=== PATIENT | male | born 1955 | race Hispanic/Latino ===

== ENCOUNTER 2024-06-07 08:48 | Inpatient (IN) | payer MEDICARE ==
[2024-06-07] VITALS (7 sets, daily range): BP systolic 174–192; BP diastolic 100–108; PULSE 93–101; RESP 16–18; TEMP 97.9–98.6; O2SAT 98–100
[~2024-06-07] VITALS: Ht 165.1 cm; Wt 54.4 kg
[2024-06-07] MEDS ORDERED: JARDIANCE25 MG PO (09:40)
[2024-06-07] MEDS ORDERED: METFORMIN HCL500 MG PO (09:40)
[2024-06-07] MEDS ORDERED: ATORVASTATIN CA20 MG PO (09:40)
[2024-06-07] MEDS ORDERED: FAMOTIDINE20 MG PO (09:40)
[2024-06-07] MEDS ORDERED: TRAZODONE HCL50 MG PO (09:40)
[2024-06-07] MEDS ORDERED: LANTUS 3ML100 UNITS/ SQ (09:40)
[2024-06-07 09:50] LABS: BASOPHILS % 0.6 % (0.0-1.0); EOSINOPHILS # (AUTO) 0.1 (0.0-0.4); EOSINOPHILS % 2.1 % (0.0-6.0); HEMATOCRIT 31.7 % (38.2-49.6); HEMOGLOBIN 10.8 g/dL (14.0-18.0); LYMPHOCYTES # (AUTO) 0.7 (1.0-3.2); LYMPHOCYTES % 15.2 % (18.0-39.1); MEAN CORPUSCULAR HEMOGLOBIN 29.9 pg (28-32); MEAN CORPUSCULAR HGB CONC 34.1 g/dL (31-35); MEAN CORPUSCULAR VOLUME 87.8 fL (81-99); MONOCYTES # (AUTO) 0.8 (0.2-0.8); MONOCYTES % 16.1 % (4.4-11.3); NEUTROPHILS # (AUTO) 3.1 (2.1-6.9); NEUTROPHILS % 65.8 % (38.7-80.0); PLATELET COUNT 193 x10e3/uL (140-360); RED BLOOD COUNT 3.61 x10e6/uL (4.3-5.7); RED CELL DISTRIBUTION WIDTH 13.4 % (11.7-14.4); WHITE BLOOD COUNT 4.66 x10e3/uL (4.8-10.8)
[2024-06-07 10:13] LABS: ALBUMIN 3.6 g/dL (3.5-5.0); ALBUMIN/GLOBULIN RATIO 1.2 (0.8-2.0); ANION GAP 19.1 mmol/L (8-16); BILIRUBIN,TOTAL 0.6 mg/dL (0.2-1.2); CALCIUM 8.1 mg/dL (8.4-10.2); CREATININE, SERUM 8.43 mg/dL (0.72-1.25); POTASSIUM 5.1 mmol/L (3.5-5.1); TOTAL PROTEIN 6.6 g/dL (6.5-8.1)
[2024-06-07 10:15] LABS: CLARITY,URINE CLEAR (CLEAR); COLOR,URINE YELLOW (YELLOW)
[2024-06-07] MEDS ORDERED: SODIUM CHLORIDE 0.9% 1000ML 1,000 ML IV SCH (10:15)
[2024-06-07 10:16] LABS: BILIRUBIN,URINE NEGATIVE (NEGATIVE); GLUCOSE, URINE 1+ (NEGATIVE); KETONES,URINE NEGATIVE (NEGATIVE); LEUKOCYTE ESTERASE ,URINE NEGATIVE (NEGATIVE); NITRITE,URINE NEGATIVE (NEGATIVE); PH,URINE 7.5 (5 - 7); PROTEIN,URINE DIPSTICK 2+ (NEGATIVE); URINE UROBILINOGEN 0.2 mg/dL (0.2 - 1)
[2024-06-07 10:19] LABS: RBC,URINE 0-5 /HPF (0-5); WBC,URINE (MAN) 0-5 /HPF (0-5)
[2024-06-07] MEDS ORDERED: LOSARTAN POTASS25 MG PO (11:15)
[2024-06-07] MEDS ORDERED: DEXTROSE 50% SYRINGE 50 ML IV PRN (12:00)
[2024-06-07] MEDS ORDERED: ACETAMINOPHEN 325 MG TAB PO PRN (12:00)
[2024-06-07] MEDS ORDERED: DOCUSATE SODIUM 100 MG CAP PO PRN (12:00)
[2024-06-07] MEDS: METOPROLOL TARTRATE INJ 1 MG/ML VIAL IV PRN (13:29)
[2024-06-07] MEDS: SODIUM CHLORIDE 0.9% 1000ML 1,000 ML IV SCH (13:36)
[2024-06-07 13:52] LABS: CHOL/HDL RATIO 4.6 (3.9-4.7)
[2024-06-07] MEDS: LORATADINE 10 MG TAB PO SCH (16:13)
[2024-06-07] MEDS: INSULIN REGULAR, HUMAN 100 UNIT/1 ML SQ SCH (16:30)
[2024-06-07] MEDS: TRAZODONE HCL 50 MG TAB PO SCH (21:25)
[2024-06-07] MEDS: ATORVASTATIN 40 MG TAB PO SCH (21:25)
[2024-06-07] MEDS: HEPARIN SOD (PORCINE) 5,000 UNIT/ML VIAL SC SCH (21:30)
[2024-06-08] VITALS (11 sets, daily range): BP systolic 139–160; BP diastolic 83–98; PULSE 84–101; RESP 18–20; TEMP 97.4–98.9; O2SAT 96–100
[2024-06-08 06:14] LABS: BASOPHILS % 0.5 % (0.0-1.0); EOSINOPHILS % 0.4 % (0.0-6.0); HEMATOCRIT 31.3 % (38.2-49.6); HEMOGLOBIN 10.5 g/dL (14.0-18.0); LYMPHOCYTES # (AUTO) 0.6 (1.0-3.2); LYMPHOCYTES % 10.3 % (18.0-39.1); MEAN CORPUSCULAR HEMOGLOBIN 29.5 pg (28-32); MEAN CORPUSCULAR HGB CONC 33.5 g/dL (31-35); MEAN CORPUSCULAR VOLUME 87.9 fL (81-99); MONOCYTES # (AUTO) 0.4 (0.2-0.8); MONOCYTES % 7.7 % (4.4-11.3); NEUTROPHILS # (AUTO) 4.4 (2.1-6.9); NEUTROPHILS % 80.7 % (38.7-80.0); PLATELET COUNT 197 x10e3/uL (140-360); RED BLOOD COUNT 3.56 x10e6/uL (4.3-5.7); RED CELL DISTRIBUTION WIDTH 13.3 % (11.7-14.4); WHITE BLOOD COUNT 5.46 x10e3/uL (4.8-10.8)
[2024-06-08 06:35] LABS: ANION GAP 18.1 mmol/L (8-16); CALCIUM 7.6 mg/dL (8.4-10.2); POTASSIUM 5.1 mmol/L (3.5-5.1)
[2024-06-08] MEDS ORDERED: SODIUM BICARBONATE 8.4% SYRING 100 ML in DEXTROSE 5% 1,000 ML IV SCH (08:30)
[2024-06-08] MEDS: METOPROLOL TARTRATE 25 MG TAB PO SCH (08:39)
[2024-06-08] MEDS ORDERED: SODIUM BICARBONATE 8.4% VIAL 100 ML in DEXTROSE 5% 1,000 ML IV SCH (09:45)
[2024-06-08] MEDS: SODIUM BICARBONATE 8.4% VIAL 100 ML in DEXTROSE 5% 1,000 ML IV SCH (11:27)
[2024-06-08] MEDS: MELATONIN 3 MG TAB PO PRN (21:38)
[2024-06-09] VITALS (9 sets, daily range): BP systolic 141–170; BP diastolic 80–93; PULSE 79–92; RESP 16–20; TEMP 98–98.8; O2SAT 95–98
[2024-06-09 07:01] LABS: BASOPHILS % 0.4 % (0.0-1.0); EOSINOPHILS # (AUTO) 0.2 (0.0-0.4); EOSINOPHILS % 3.5 % (0.0-6.0); HEMATOCRIT 27.1 % (38.2-49.6); HEMOGLOBIN 9.2 g/dL (14.0-18.0); LYMPHOCYTES # (AUTO) 1.3 (1.0-3.2); LYMPHOCYTES % 26.2 % (18.0-39.1); MEAN CORPUSCULAR HEMOGLOBIN 29.7 pg (28-32); MEAN CORPUSCULAR HGB CONC 33.9 g/dL (31-35); MEAN CORPUSCULAR VOLUME 87.4 fL (81-99); MONOCYTES # (AUTO) 0.6 (0.2-0.8); MONOCYTES % 13.1 % (4.4-11.3); NEUTROPHILS # (AUTO) 2.8 (2.1-6.9); NEUTROPHILS % 56.6 % (38.7-80.0); PLATELET COUNT 174 x10e3/uL (140-360); RED CELL DISTRIBUTION WIDTH 13.3 % (11.7-14.4); WHITE BLOOD COUNT 4.88 x10e3/uL (4.8-10.8)
[2024-06-09 07:28] LABS: ANION GAP 17.1 mmol/L (8-16); CALCIUM 7.3 mg/dL (8.4-10.2); CREATININE, SERUM 8.01 mg/dL (0.72-1.25); POTASSIUM 4.1 mmol/L (3.5-5.1)
[2024-06-10] VITALS (11 sets, daily range): BP systolic 136–179; BP diastolic 78–97; PULSE 58–83; RESP 18–20; TEMP 97–98.6; O2SAT 92–100
[2024-06-10 06:47] LABS: BASOPHILS % 0.4 % (0.0-1.0); EOSINOPHILS # (AUTO) 0.2 (0.0-0.4); EOSINOPHILS % 3.8 % (0.0-6.0); HEMOGLOBIN 8.9 g/dL (14.0-18.0); LYMPHOCYTES % 18.6 % (18.0-39.1); MEAN CORPUSCULAR HEMOGLOBIN 29.7 pg (28-32); MEAN CORPUSCULAR HGB CONC 34.2 g/dL (31-35); MEAN CORPUSCULAR VOLUME 86.7 fL (81-99); MONOCYTES # (AUTO) 0.6 (0.2-0.8); NEUTROPHILS # (AUTO) 3.5 (2.1-6.9); NEUTROPHILS % 64.8 % (38.7-80.0); PLATELET COUNT 173 x10e3/uL (140-360); RED CELL DISTRIBUTION WIDTH 13.2 % (11.7-14.4); WHITE BLOOD COUNT 5.33 x10e3/uL (4.8-10.8)
[2024-06-10 07:28] LABS: ANION GAP 16.7 mmol/L (8-16); CALCIUM 7.1 mg/dL (8.4-10.2); CREATININE, SERUM 7.68 mg/dL (0.72-1.25); POTASSIUM 3.7 mmol/L (3.5-5.1)
[2024-06-10] MEDS: SODIUM CHLORIDE 0.9% 1000ML 1,000 ML IV SCH (11:00)
[2024-06-10] MEDS: METHYLPREDNISOLONE SOD SUCC 40 MG/ML VIAL 1ML IV SCH (21:24)
[2024-06-11] VITALS (22 sets, daily range): BP systolic 144–205; BP diastolic 88–146; PULSE 25–126; RESP 11–31; TEMP 97.4–98.2; O2SAT 62–100
[2024-06-11 06:56] LABS: CALCIUM 7.2 mg/dL (8.4-10.2); CREATININE, SERUM 7.29 mg/dL (0.72-1.25)
[2024-06-11] MEDS: METOPROLOL TARTRATE 50 MG TAB PO SCH (08:49)
[2024-06-11] MEDS: METHYLPREDNISOLONE SOD SUCC 40 MG/ML VIAL 1ML IV SCH (08:50)
[2024-06-11 21:28] LABS: BASOPHILS % 0.1 % (0.0-1.0); HEMATOCRIT 30.6 % (38.2-49.6); HEMOGLOBIN 10.4 g/dL (14.0-18.0); LYMPHOCYTES # (AUTO) 0.9 (1.0-3.2); LYMPHOCYTES % 8.3 % (18.0-39.1); MEAN CORPUSCULAR VOLUME 88.2 fL (81-99); MONOCYTES # (AUTO) 0.5 (0.2-0.8); MONOCYTES % 4.5 % (4.4-11.3); NEUTROPHILS # (AUTO) 9.3 (2.1-6.9); NEUTROPHILS % 86.4 % (38.7-80.0); PLATELET COUNT 254 x10e3/uL (140-360); RED BLOOD COUNT 3.47 x10e6/uL (4.3-5.7); RED CELL DISTRIBUTION WIDTH 13.2 % (11.7-14.4); WHITE BLOOD COUNT 10.73 x10e3/uL (4.8-10.8)
[2024-06-11] MEDS: LORAZEPAM INJ 2 MG/ML VIAL ONE (21:38)
[2024-06-11] MEDS: ONDANSETRON HCL INJ 2MG/ML 2ML 2 MG/ML VIAL ONE (21:39)
[2024-06-11] MEDS: GLUCAGON FOR INJ 1 MG VIAL ONE (21:39)
[2024-06-11] MEDS: FUROSEMIDE INJ 10 MG/ML 2 ML VIAL ONE ×2 (21:40→21:41)
[2024-06-11 21:52] LABS: ALBUMIN 3.3 g/dL (3.5-5.0); ALBUMIN/GLOBULIN RATIO 1.1 (0.8-2.0); ANION GAP 16.9 mmol/L (8-16); BILIRUBIN,TOTAL 0.7 mg/dL (0.2-1.2); CREATININE, SERUM 6.76 mg/dL (0.72-1.25); POTASSIUM 3.9 mmol/L (3.5-5.1); TOTAL PROTEIN 6.3 g/dL (6.5-8.1)
[2024-06-11 22:04] LABS: CREATINE KINASE 112 IU/L (30-200)
[2024-06-11 22:10] LABS: TROPONIN I < 0.05 ng/mL (0.0-0.40)
[2024-06-11] MEDS: ALBUTEROL/IPRATROPIUM 3 ML NEB NEB PRN (22:12)
[2024-06-11] MEDS: LORAZEPAM INJ 2 MG/ML VIAL IV ONE (22:41)
[2024-06-11] MEDS: GLUCAGON FOR INJ 1 MG VIAL IV ONE (22:42)
[2024-06-11] MEDS: FUROSEMIDE INJ 10 MG/ML 4 ML VIAL IV ONE (22:42)
[2024-06-11] MEDS: ONDANSETRON HCL INJ 2MG/ML 2ML 2 MG/ML VIAL IV STA (22:45)
[2024-06-11] MEDS ORDERED: DEXMEDETOMIDINE 400MCG/NS100ML 100 ML IV PRN (23:00)
[2024-06-11] MEDS: MUPIROCIN 2% OINT 22 GM TUBE TOP SCH (23:00)
[2024-06-12] VITALS (39 sets, daily range): BP systolic 93–168; BP diastolic 65–98; PULSE 72–94; RESP 16–20; TEMP 97–97.6; O2SAT 97–100
[2024-06-12] MEDS: HEPARIN 500 UNITS/5ML MDV INJ PRN (01:06)
[2024-06-12] MEDS: FUROSEMIDE INJ 100 MG in SODIUM CHLORIDE 0.9% 90 ML IV STA (01:06)
[2024-06-12] MEDS: PROPOFOL IV EMULSION 10MG/ML 100 ML IV PRN ×2 (01:18→16:08)
[2024-06-12 02:21] LABS: ABG HCO3 22 mmol/L (22-26); ABG PCO2 42 mmHg (35-45); ABG PH 7.33 (7.35-7.45); ABG PO2 276 mmHg (80-105); ABG TCO2 23
[2024-06-12 06:39] LABS: ANION GAP 17.8 mmol/L (8-16); CREATININE, SERUM 6.82 mg/dL (0.72-1.25); POTASSIUM 3.8 mmol/L (3.5-5.1)
[2024-06-12 06:44] LABS: CALCIUM 6.4 mg/dL (8.4-10.2)
[2024-06-12 07:14] LABS: COMPLEMENT C3 105 mg/dL (82-167)
[2024-06-12 07:23] LABS: COMPLEMENT C4 15 mg/dL (12-38)
[2024-06-12 07:41] LABS: ABG HCO3 22 mmol/L (22-26); ABG PCO2 36 mmHg (35-45); ABG PH 7.39 (7.35-7.45); ABG PO2 141 mmHg (80-105); ABG TCO2 23
[2024-06-12] MEDS: FUROSEMIDE INJ 10 MG/ML 4 ML VIAL IV ONE (08:51)
[2024-06-12] MEDS: CALCIUM GLUC 1 G/50 ML NACL 50 ML IV ONE ×2 (08:51→10:28)
[2024-06-12] MEDS: MIDAZOLAM HCL 2 MG/2 ML VIAL IV ONE (08:53)
[2024-06-12] MEDS: HEPARIN SOD (PORCINE) 5,000 UNIT/ML VIAL SC SCH (10:35)
[2024-06-12] MEDS ORDERED: WATER STERILE 10 ML VIAL ONE (11:15)
[2024-06-12] MEDS ORDERED: MIDAZOLAM HCL 2 MG/2 ML VIAL ONE (11:15)
[2024-06-12] MEDS ORDERED: ETOMIDATE 2 MG/ML 10 ML INJ IV ONE (11:15)
[2024-06-12] MEDS ORDERED: VECURONIUM BROMIDE FOR INJ 20 MG VIAL ONE (11:15)
[2024-06-12] MEDS: FUROSEMIDE INJ 100 MG in SODIUM CHLORIDE 0.9% 90 ML IV SCH (14:28)
[2024-06-12] MEDS: LORAZEPAM INJ 2 MG/ML VIAL IV PRN (15:08)
[2024-06-13] VITALS (24 sets, daily range): BP systolic 131–174; BP diastolic 76–101; PULSE 74–95; RESP 15–20; TEMP 97–98; O2SAT 99–100
[2024-06-13 07:24] LABS: HEMATOCRIT 25.2 % (38.2-49.6); LYMPHOCYTES # (AUTO) 0.3 (1.0-3.2); LYMPHOCYTES % 3.9 % (18.0-39.1); MEAN CORPUSCULAR HEMOGLOBIN 29.9 pg (28-32); MEAN CORPUSCULAR HGB CONC 35.7 g/dL (31-35); MEAN CORPUSCULAR VOLUME 83.7 fL (81-99); MONOCYTES # (AUTO) 0.5 (0.2-0.8); MONOCYTES % 5.4 % (4.4-11.3); NEUTROPHILS # (AUTO) 7.7 (2.1-6.9); NEUTROPHILS % 90.3 % (38.7-80.0); PLATELET COUNT 184 x10e3/uL (140-360); RED BLOOD COUNT 3.01 x10e6/uL (4.3-5.7); RED CELL DISTRIBUTION WIDTH 13.2 % (11.7-14.4)
[2024-06-13 07:53] LABS: ALBUMIN 2.8 g/dL (3.5-5.0); ALBUMIN/GLOBULIN RATIO 0.9 (0.8-2.0); ANION GAP 24.7 mmol/L (8-16); BILIRUBIN,TOTAL 0.5 mg/dL (0.2-1.2); CREATININE, SERUM 7.37 mg/dL (0.72-1.25); POTASSIUM 3.7 mmol/L (3.5-5.1); TOTAL PROTEIN 5.9 g/dL (6.5-8.1)
[2024-06-13] MEDS: LABETALOL HCL 5 MG/ML 20ML VIAL IV PRN (08:29)
[2024-06-13] MEDS ORDERED: HEPARIN SOD (PORCINE) 1000 UNIT/ML SDV IV PRN (14:30)
[2024-06-13] MEDS ORDERED: MANNITOL 25% 12.5GM/50 ML VIAL IV PRN (14:30)
[2024-06-13] MEDS ORDERED: SODIUM CHLORIDE 0.9% 1000ML 2,000 ML IV PRN (14:30)
[2024-06-13] MEDS: SODIUM CHLORIDE 0.9% 1000ML 0 ML ONE (19:52)
[2024-06-14] VITALS (85 sets, daily range): BP systolic 110–204; BP diastolic 62–106; PULSE 74–101; RESP 9–20; TEMP 97.1–98.8; O2SAT 97–100
[2024-06-14 06:04] LABS: ALBUMIN 2.8 g/dL (3.5-5.0); ALBUMIN/GLOBULIN RATIO 0.8 (0.8-2.0); ANION GAP 21.7 mmol/L (8-16); BILIRUBIN,TOTAL 0.4 mg/dL (0.2-1.2); CALCIUM 7.5 mg/dL (8.4-10.2); CREATININE, SERUM 5.62 mg/dL (0.72-1.25); POTASSIUM 3.7 mmol/L (3.5-5.1); TOTAL PROTEIN 6.1 g/dL (6.5-8.1)
[2024-06-14 06:22] LABS: BASOPHILS % 0.1 % (0.0-1.0); HEMOGLOBIN 9.4 g/dL (14.0-18.0); LYMPHOCYTES # (AUTO) 0.3 (1.0-3.2); LYMPHOCYTES % 3.8 % (18.0-39.1); MEAN CORPUSCULAR HEMOGLOBIN 29.7 pg (28-32); MEAN CORPUSCULAR HGB CONC 34.8 g/dL (31-35); MEAN CORPUSCULAR VOLUME 85.2 fL (81-99); MONOCYTES # (AUTO) 0.4 (0.2-0.8); MONOCYTES % 5.3 % (4.4-11.3); NEUTROPHILS # (AUTO) 6.2 (2.1-6.9); NEUTROPHILS % 90.4 % (38.7-80.0); PLATELET COUNT 213 x10e3/uL (140-360); RED BLOOD COUNT 3.17 x10e6/uL (4.3-5.7); RED CELL DISTRIBUTION WIDTH 13.2 % (11.7-14.4); WHITE BLOOD COUNT 6.85 x10e3/uL (4.8-10.8)
[2024-06-14 08:35] LABS: ABG HCO3 26 mmol/L (22-26); ABG PCO2 36 mmHg (35-45); ABG PH 7.46 (7.35-7.45); ABG PO2 182 mmHg (80-105); ABG TCO2 27
[2024-06-14] MEDS: METOPROLOL TARTRATE 50 MG TAB PO ONE (09:54)
[2024-06-14] MEDS: SODIUM CHLORIDE 0.9% 1000ML 1,000 ML ONE (10:09)
[2024-06-14] MEDS: HEPARIN SOD (PORCINE) 1000 UNIT/ML SDV ONE (10:09)
[2024-06-14] MEDS: NIFEDIPINE CR 30 MG TAB PO ONE (11:40)
[2024-06-14] MEDS: METOPROLOL TARTRATE 50 MG TAB PO SCH ×2 (11:41→20:44)
[2024-06-15] VITALS (45 sets, daily range): BP systolic 145–188; BP diastolic 79–100; PULSE 70–134; RESP 10–20; TEMP 97.9–98.4; O2SAT 10–100
[2024-06-15 09:01] LABS: WHITE BLOOD COUNT 7.69 x10e3/uL (4.8-10.8)
[2024-06-15 09:02] LABS: BASOPHILS % 0.1 % (0.0-1.0); HEMATOCRIT 28.3 % (38.2-49.6); HEMOGLOBIN 9.5 g/dL (14.0-18.0); LYMPHOCYTES % 4.3 % (18.0-39.1); MEAN CORPUSCULAR HEMOGLOBIN 29.1 pg (28-32); MEAN CORPUSCULAR HGB CONC 33.6 g/dL (31-35); MEAN CORPUSCULAR VOLUME 86.8 fL (81-99); NEUTROPHILS # (AUTO) 6.4 (2.1-6.9); NEUTROPHILS % 83.2 % (38.7-80.0); PLATELET COUNT 227 x10e3/uL (140-360); RED BLOOD COUNT 3.26 x10e6/uL (4.3-5.7); RED CELL DISTRIBUTION WIDTH 13.7 % (11.7-14.4)
[2024-06-15 09:03] LABS: LYMPHOCYTES # (AUTO) 0.3 (1.0-3.2); MONOCYTES # (AUTO) 0.9 (0.2-0.8)
[2024-06-15 09:18] LABS: ANION GAP 19.6 mmol/L (8-16); BILIRUBIN,TOTAL 0.6 mg/dL (0.2-1.2); CREATININE, SERUM 4.69 mg/dL (0.72-1.25); POTASSIUM 3.6 mmol/L (3.5-5.1)
[2024-06-15 09:19] LABS: ALBUMIN 2.9 g/dL (3.5-5.0); ALBUMIN/GLOBULIN RATIO 0.9 (0.8-2.0); TOTAL PROTEIN 6.1 g/dL (6.5-8.1)
[2024-06-15] MEDS: LOSARTAN POTASSIUM 100 MG TAB PO SCH (10:17)
[2024-06-15] MEDS: NIFEDIPINE CR 30 MG TAB PO SCH (15:30)
[2024-06-16] VITALS (28 sets, daily range): BP systolic 134–180; BP diastolic 79–109; PULSE 65–95; RESP 10–21; TEMP 98–98.4; O2SAT 95–100
[2024-06-16 07:01] LABS: ANION GAP 17.9 mmol/L (8-16); CALCIUM 7.9 mg/dL (8.4-10.2); CREATININE, SERUM 5.73 mg/dL (0.72-1.25); POTASSIUM 3.9 mmol/L (3.5-5.1)
[2024-06-16] MEDS: ONDANSETRON HCL INJ 2MG/ML 2ML 2 MG/ML VIAL IV PRN (13:44)
[2024-06-17 03:39] VITALS: BP 151/82; PULSE 82; RESP 18; TEMP 98.2; O2SAT 100
[2024-06-17 06:24] LABS: BASOPHILS % 0.1 % (0.0-1.0); EOSINOPHILS % 0.1 % (0.0-6.0); HEMATOCRIT 32.6 % (38.2-49.6); HEMOGLOBIN 10.5 g/dL (14.0-18.0); LYMPHOCYTES # (AUTO) 0.8 (1.0-3.2); LYMPHOCYTES % 8.9 % (18.0-39.1); MEAN CORPUSCULAR HEMOGLOBIN 29.1 pg (28-32); MEAN CORPUSCULAR HGB CONC 32.2 g/dL (31-35); MEAN CORPUSCULAR VOLUME 90.3 fL (81-99); MONOCYTES # (AUTO) 0.6 (0.2-0.8); MONOCYTES % 6.7 % (4.4-11.3); NEUTROPHILS # (AUTO) 7.6 (2.1-6.9); NEUTROPHILS % 83.5 % (38.7-80.0); PLATELET COUNT 222 x10e3/uL (140-360); RED BLOOD COUNT 3.61 x10e6/uL (4.3-5.7); RED CELL DISTRIBUTION WIDTH 13.2 % (11.7-14.4); WHITE BLOOD COUNT 9.14 x10e3/uL (4.8-10.8)
[2024-06-17 06:57] LABS: ALBUMIN 2.9 g/dL (3.5-5.0); ALBUMIN/GLOBULIN RATIO 0.9 (0.8-2.0); ANION GAP 16.4 mmol/L (8-16); BILIRUBIN,TOTAL 0.4 mg/dL (0.2-1.2); CALCIUM 7.7 mg/dL (8.4-10.2); CREATININE, SERUM 4.15 mg/dL (0.72-1.25); POTASSIUM 4.4 mmol/L (3.5-5.1); TOTAL PROTEIN 6.1 g/dL (6.5-8.1)
[2024-06-17 07:34] LABS: HEPATITIS B SURFACE AB QUANT <3.5
[2024-06-17 07:35] LABS: HEPATITIS B CORE AB TOTAL Negative; HEPATITIS B SURFACE AG (P) Negative
[2024-06-17 07:41] VITALS: BP 163/86; PULSE 85; RESP 17; TEMP 97.3; O2SAT 97
[2024-06-17 15:49] VITALS: BP 167/86; PULSE 85; RESP 17; TEMP 97.3; O2SAT 97
[2024-06-17 17:11] VITALS: BP 145/78; PULSE 85; RESP 18; TEMP 98.1; O2SAT 97
[2024-06-18] VITALS (7 sets, daily range): BP systolic 154–185; BP diastolic 84–101; PULSE 79–98; RESP 18–20; TEMP 97–98.1; O2SAT 97–99
[2024-06-18] MEDS ORDERED: METOPROLOL TARTRATE INJ 1 MG/ML VIAL IV PRN (08:00)
[2024-06-18] MEDS: NIFEDIPINE CR 30 MG TAB PO SCH (09:00)
[2024-06-19] VITALS (8 sets, daily range): BP systolic 103–180; BP diastolic 60–85; PULSE 66–96; RESP 18–20; TEMP 98.1–98.5; O2SAT 98–100
[2024-06-19 09:38] LABS: INR 0.86; PROTHROMBIN TIME 12.3 seconds (11.9-14.5)
[2024-06-19] MEDS ORDERED: SODIUM CHLORIDE 0.9% 250ML 250 ML ONE ×3 (10:16→11:03)
[2024-06-19] MEDS ORDERED: LIDOCAINE HCL 1% 30ML-PF VIAL ONE (10:32)
[2024-06-19] MEDS ORDERED: FENTANYL CITRATE/PF 100MCG/2 ML INJ ONE (11:03)
[2024-06-19] MEDS ORDERED: HEPARIN SOD (PORCINE) 1000 UNIT/ML SDV ONE (12:02)
[2024-06-20] VITALS (7 sets, daily range): BP systolic 110–155; BP diastolic 64–81; PULSE 76–103; RESP 18–19; TEMP 97.6–98.4; O2SAT 97–100
[2024-06-20] MEDS ORDERED: COZAAR100 MG PO (15:29)
[2024-06-20] MEDS ORDERED: NIFEDIPINE ER30 M1 PO (15:29)
[2024-06-20] MEDS ORDERED: METOPROLOL TART50 MG PO (15:29)
== END 2024-06-20 19:59 | disposition home or self-care (01) | DRG 673 ==
LOC: ER 09:10 → ERHOLD 10:40 → MED/SURG3 12:43 → ICU 06-11 22:04 → MED/SURG3 06-16 14:05
PROVIDERS: ADMIT Internal Medicine; ATTEND Internal Medicine
PROC: 0T9B70Z Drainage of Bladder with Drainage Device, Via Natural or Artificial Opening (ICD-10-PCS; 2024-06-07)
PROC: 4A043R1 Measurement of Venous Saturation, Peripheral, Percutaneous Approach (ICD-10-PCS; 2024-06-11)
PROC: 5A09357 Assistance with Respiratory Ventilation, Less than 24 Consecutive Hours, Continuous Positive Airway Pressure (ICD-10-PCS; 2024-06-11)
PROC: 0BH17EZ Insertion of Endotracheal Airway into Trachea, Via Natural or Artificial Opening (ICD-10-PCS; 2024-06-11)
PROC: 05HM33Z Insertion of Infusion Device into Right Internal Jugular Vein, Percutaneous Approach (ICD-10-PCS; 2024-06-11)
PROC: B543ZZA Ultrasonography of Right Jugular Veins, Guidance (ICD-10-PCS; 2024-06-11)
PROC: 4A033R1 Measurement of Arterial Saturation, Peripheral, Percutaneous Approach (ICD-10-PCS; 2024-06-12)
PROC: 4A033R1 Measurement of Arterial Saturation, Peripheral, Percutaneous Approach (ICD-10-PCS; 2024-06-12)
PROC: 5A1945Z Respiratory Ventilation, 24-96 Consecutive Hours (ICD-10-PCS; 2024-06-12)
PROC: 0DH67UZ Insertion of Feeding Device into Stomach, Via Natural or Artificial Opening (ICD-10-PCS; 2024-06-12)
PROC: 3E0G76Z Introduction of Nutritional Substance into Upper GI, Via Natural or Artificial Opening (ICD-10-PCS; 2024-06-12)
PROC: 5A1D70Z Performance of Urinary Filtration, Intermittent, Less than 6 Hours Per Day (ICD-10-PCS; 2024-06-13)
PROC: 5A1D70Z Performance of Urinary Filtration, Intermittent, Less than 6 Hours Per Day (ICD-10-PCS; 2024-06-14)
PROC: 4A033R1 Measurement of Arterial Saturation, Peripheral, Percutaneous Approach (ICD-10-PCS; 2024-06-14)
PROC: 5A1D70Z Performance of Urinary Filtration, Intermittent, Less than 6 Hours Per Day (ICD-10-PCS; 2024-06-16)
PROC: 5A1D70Z Performance of Urinary Filtration, Intermittent, Less than 6 Hours Per Day (ICD-10-PCS; 2024-06-18)
PROC: 0JH63XZ Insertion of Tunneled Vascular Access Device into Chest Subcutaneous Tissue and Fascia, Percutaneous Approach (ICD-10-PCS; principal; 2024-06-19)
PROC: 02H633Z Insertion of Infusion Device into Right Atrium, Percutaneous Approach (ICD-10-PCS; 2024-06-19)
PROC: B5181ZA Fluoroscopy of Superior Vena Cava using Low Osmolar Contrast, Guidance (ICD-10-PCS; 2024-06-19)
PROC: B548ZZA Ultrasonography of Superior Vena Cava, Guidance (ICD-10-PCS; 2024-06-19)
PROC: 5A1D70Z Performance of Urinary Filtration, Intermittent, Less than 6 Hours Per Day (ICD-10-PCS; 2024-06-20)
DX: N17.9 Acute kidney failure, unspecified (principal); I50.31 Acute diastolic (congestive) heart failure; J96.01 Acute respiratory failure with hypoxia; J96.02 Acute respiratory failure with hypercapnia; E87.20 Acidosis, unspecified; I13.2 Hypertensive heart and chronic kidney disease with heart failure and with stage 5 chronic kidney disease, or end stage renal disease; E87.1 Hypo-osmolality and hyponatremia; J06.9 Acute upper respiratory infection, unspecified; N18.6 End stage renal disease; N10 Acute pyelonephritis; R33.9 Retention of urine, unspecified; E11.22 Type 2 diabetes mellitus with diabetic chronic kidney disease; Z79.4 Long term (current) use of insulin; Z79.84 Long term (current) use of oral hypoglycemic drugs; Z99.2 Dependence on renal dialysis; D64.9 Anemia, unspecified; E87.8 Other disorders of electrolyte and fluid balance, not elsewhere classified; R00.0 Tachycardia, unspecified; Z71.3 Dietary counseling and surveillance; Z68.20 Body mass index [BMI] 20.0-20.9, adult; E78.5 Hyperlipidemia, unspecified; K21.9 Gastro-esophageal reflux disease without esophagitis; Z71.81 Spiritual or religious counseling; Z79.899 Other long term (current) drug therapy
CPT/HCPCS: 36415; 36558; 36600; 51700; 70450; 71045; 74018; 74470; 76770; 76937; 77001; 80048; 80053; 80061; 81001; 82550; 82805; 82948; 83036; 83880; 84484; 85025; 85610; 86160; 86704; 86706; 87340; 90962; 93005; 93306; 94002; 94003; 94640; 94660; 94799; 96372; 99252; 99284; C1892; J0690; J1610; J1644; J1938; J1940; J2003; J2060; J2150; J2250; J2405; J2470; J2543; J2919; J7030; J7050; J7070